=== PATIENT | female | born 1980 | race Hispanic/Latino ===

== ENCOUNTER 2022-07-15 13:27 | Emergency (ER) | payer SELFPAY ==
--- OUTSIDE RECORDS SUMMARY | 2022-07-15 13:31 | XMS REPORT | Continuity of Care Document ---
:1980 Author Organization [facility] t Address [address] [place] [address] Care Team Providers Name Role Phone KHUSHBOO MCGOWAN Attending Clinician Unavailable Emeka Attending Clinician Unavailable Vikash Attending Clinician Unavailable TERESA DURAN Attending Clinician Unavailable KEYSHA Attending Clinician Unavailable DARRYL BARRAGAN Attending Clinician Unavailable ERIC BAJWA Attending Clinician Unavailable NIK OKEEFE Attending Clinician Unavailable TAYLOR MARIE Attending Clinician Unavailable APARNA GREENWOOD Attending Clinician Unavailable HESHAM ROBERTSON Attending Clinician Unavailable MARGRET NUNEZ Attending Clinician Unavailable MIGUEL GUZAMN Attending Clinician Unavailable Germaine Horvath Attending Clinician Unavailable FREDO LARKIN Attending Clinician Unavailable JUSTIN TENORIO Attending Clinician Unavailable SUSAN ZARAGOZA Attending Clinician Unavailable LAN OLIVER Attending Clinician Unavailable OTHER, ENTER NAME IN NOTES Attending Clinician Unavailable TAYA ANDERSON Attending Clinician Unavailable Analy HERR Attending Clinician Unavailable Emeka Admitting Clinician Unavailable Vikash Admitting Clinician Unavailable KEYSHA Admitting Clinician Unavailable HESHAM ROBERTSON Admitting Clinician Unavailable FREDO LARKIN Admitting Clinician Unavailable Payers Payer Name Policy Type Policy Number Effective Date Expiration Date S ource Problems Condition Condition Condition Status Onset Resolution Last Treating Co mments Source Name Details Category Date Date Treatment Clinician Date Obesity Obesity Problem Active [facility] Abdominal Abdominal Problem Active [facility] Allergies, Adverse Reactions, Alerts Allergy Allergy Status Severity Reaction(s) Onset Inactive Treating Comm ents Source Name Type Date Date Clinician PENICILL Allergy Active [place] Social History Smoking Status Start Date Stop Date Source Current Some Day Smoker [facility] Medications Ordered Filled Start Stop Current Ordering Indication Dosage Frequency Signature Comments Components Source Medication Medication Date Date Medication? Clinician (SIG) Name Name Albuterol Albuterol No 2puff(s Q4H Albuterol [place] Sulfate HFA Sulfate HFA ) Sulfate da 90 90 HFA 90 Medical mcg/Actuati mcg/Actuati mcg/Actuat Group on aerosol on aerosol ion inhaler inhaler aerosol Inhale 2 Inhale 2 inhaler puffs every puffs every Inhale 2 4 hours by 4 hours by puffs inhalation inhalation every 4 route. route. hours by inhalation route. prednisolon prednisolon No prednisolo [facility] Zithromax Zithromax No Zithromax [place] Z-Jeff 250 Z-Jeff 250 Z-Jeff 250 da mg tablet mg tablet mg tablet Medical TAKE 2 TAKE 2 TAKE 2 Group TABLETS TABLETS TABLETS (500 MG) BY (500 MG) BY (500 MG) ORAL ROUTE ORAL ROUTE BY ORAL ONCE DAILY ONCE DAILY ROUTE ONCE FOR 1 DAY FOR 1 DAY DAILY FOR THEN 1 THEN 1 1 DAY THEN TABLET (250 TABLET (250 1 TABLET MG) BY ORAL MG) BY ORAL (250 MG) ROUTE ONCE ROUTE ONCE BY ORAL DAILY FOR 4 DAILY FOR 4 ROUTE ONCE DAYS DAYS DAILY FOR 4 DAYS Vital Signs Vital Name Observation Time Observation Value Comments Source BP Diastolic 2021-11-13 00:00:00 90 mm[Hg] [facility] Height 2021-11-13 00:00:00 60 [in_i] [facility] BMI (Body Mass 2021-11-13 00:00:00 39.1 kg/m2 [facility] BP Systolic 2021-11-13 00:00:00 136 mm[Hg] [facility] Body Weight 2021-11-13 00:00:00 3200 [oz_av] [facility] Procedures Procedure Date / Time Performed Performing Clinician [facility] e Caes[facility] Tubal L[facility] Plan of Care Planned Activity Planned Date Details Comments Source Diagnostic Test Pending 2021-11-13 rapid strep group [facility] 00:00:00 A, throat [code = Group rapid strep group A, throat] Instructions [facility] Encounters Start End Encounter Admission Attending Care Care Encounter Source Date/Time Date/Time Type Type Clinicians Facility Department ID 2022-07-14 2022-07-14 Emergency ER [facility], [facility] [id number] [place] 08:40:00 09:56:00 KHUSHBOO -[id number] [facility] 2022-06-10 2022-06-10 Outpatient Ferguson_Ro [facility] [id number] [place] 00:00:00 00:00:00 bin 0426 [facility] 2022-06-10 2022-06-10 Out[address] Ferguson_Ro [facility] [id number] [place] 00:00:00 00:00:00 bin 0526 [facility] 2022-06-05 2022-06-05 Emergency ER [facility], [facility] [id number] [place] 15:28:00 19:00:00 KHUSHBOO -[id number] [facility] 2022-01-24 2022-01-24 Outpatient [facility] MMG [id number] [place] 00:00:00 00:00:00 1210 [facility] 2021-12-20 2021-12-20 Outpatient [facility] MMG [id number] [place] 00:00:00 00:00:00 1105 [facility] 2021-11-15 2021-11-15 Outpatient [facility] MMG [id number] [place] 00:00:00 00:00:00 1001 [facility] 2021-11-14 2021-11-14 Outpatient [facility] MMG [id number] [place] 00:00:00 00:00:00 0930 [facility] 2021-11-13 2021-11-13 Outpatient [facility] MMG [id number] [place] 00:00:00 00:00:00 0929 [facility] 2021-11-13 2021-11-13 Marilyn MMG [place] - [id number] [facility] 00:00:00 00:00:00 Discovery waqas Suh FX ARTIST: [address] [facility] [place] - [address], [facility], [place] [address] , Ph. 2021-11-10 2021-11-11 Emergency ER CATANESCU, [facility] [id number] [place] 23:56:00 01:11:00 TERESA -[id number] [facility] 2021-03-12 2021-03-12 [facility] [id number] [place] 04:29:00 04:29:00 ANTWON 0126 [facility] 2018-08-23 2018-08-23 Emergency ER YUNG, [facility] [id number] [place] 15:46:00 17:49:00 DARRYL -[id number] [facility] 2016-05-22 2016-05-22 Emergency ER UGORJI, [facility] [id number] [place] 01:30:00 02:54:00 ERIC -[id number] [facility] 2015-10-02 2015-10-02 Emergency ER OWO, TOKS [facility] [id number] [place] 00:16:00 01:37:00 -[id number] [facility] 2015-04-25 2015-04-25 Emergency ER OTINWA, [facility] [id number] [place] 20:41:00 21:48:00 TAYLOR -[id number] [facility] 2014-06-28 2014-06-28 Emergency ER UGORJI, [facility] [id number] [place] 01:03:00 03:28:00 CLEISAAK -[id number] [facility] 2013-08-27 2013-08-27 Emergency ER BA, APARNA [facility] [id number] [place] 01:18:00 02:43:00 -[id number] [facility] 2011-12-08 2011-12-08 Emergency ER UGORJI, [facility] [id number] [place] 07:50:00 09:06:00 ERIC -[id number] [facility] 2011-09-09 2011-09-10 Inpatient ER MARCELO, [facility] [id number] [place] 13:45:00 09:55:00 HESHAM -[id number] [facility] 2011-03-05 2011-03-05 Emergency ER ENRIQUE, [facility] [id number] [place] 16:00:00 18:20:00 MARGRET -[id number] [facility] 2008-12-22 2008-12-22 Emergency ER UGORJI, [facility] [id number] [place] 15:49:00 18:05:00 ERIC [id number] [facility] 2008-10-14 2008-10-14 Emergency ER THOMAS, [facility] [id number] [place] 20:33:00 22:17:00 MIGUEL -[id number] [facility] 2007-09-12 2007-09-12 Emergency ER UGORJI, [facility] [id number] [place] 13:08:00 14:42:00 ERIC -[id number] [facility] 2003-08-30 2003-08-30 Outpatient EL Neret, [facility] [id number] [place] 07:20:00 07:20:00 Germaine [id number] [facility] 2003-08-23 2003-08-23 Outpatient EL Neret, [facility] [id number] [place] 09:24:00 09:24:00 Germaine [id number] [facility] 2003-06-15 2003-06-17 Inpatient EL TRAE, [facility] MSUR [id number] [place] 05:51:00 13:00:00 FREDO [id number] [facility] 2003-04-27 2003-04-27 Inpatient ER TRAE, [facility] [id number] [place] 11:55:00 19:30:00 FREDO [id number] [facility] 2003-04-26 2003-04-26 Emergency EL TRAE, [facility] [id number] [place] 17:23:00 23:59:00 FREDO -[id number] [facility] 2002-11-14 2002-11-15 Emergency ER COBY, [facility] [id number] [place] 21:57:00 02:00:00 JUSTIN -[id number] [facility] 2002-01-23 2002-01-23 Outpatient EL Neret, [facility] [id number] [place] 14:27:00 14:27:00 Germaine -[id number] [facility] 2001-09-07 2001-09-09 Inpatient UR TRAE, [facility] [id number] [place] 06:00:00 14:30:00 FREDO -[id number] [facility] 2001-08-10 2001-08-10 Outpatient ER SUSAN ZARAGOZA [facility] [id number] [place] 10:01:00 10:01:00 -[id number] [facility] 2001-07-05 2001-07-05 Outpatient SUSAN MCCOLLUM [facility] [id number] [place] 08:32:00 08:32:00 -[id number] [facility] 2001-06-15 2001-06-15 Outpatient SUSAN MCCOLLUM [facility] [id number] [place] 09:06:00 09:06:00 -[id number] [facility] 2001-03-23 2001-03-23 Outpatient SUSAN MCCOLLUM [facility] [id number] [place] 13:55:00 13:55:00 -[id number] [facility] 2001-02-23 2001-02-23 Outpatient SUSAN MCCOLLUM [facility] [id number] [place] 15:19:00 15:19:00 -[id number] [facility] 2001-02-16 2001-02-16 Outpatient SUSAN MCCOLLUM [facility] [id number] [place] 15:56:00 15:56:00 -[id number] [facility] 2000-07-01 2000-07-01 Emergency ER UGIBRAHIMA, [facility] [id number] [place] 10:43:00 12:50:00 ERIC -[id number] [facility] 2000-04-14 2000-04-14 Emergency ER YUNG, [facility] [id number] [place] 20:49:00 23:50:00 DARRYL -[id number] [facility] 2000-01-05 2000-01-05 Emergency ER BENITO, [facility] [id number] [place] 17:23:00 20:08:00 LAN -[id number] [facility] 1999-12-05 1999-12-05 Outpatient OTHER, [facility] [id number] [place] 11:01:00 11:01:00 LEANDER -[id number] [facility] 1999-11-19 1999-11-19 Emergency ER YUNG, [facility] [id number] [place] 17:16:00 21:27:00 DARRYL [id number] [facility] 1998-11-18 1998-11-18 Outpatient EL ADAMARIS [facility] [id number] [place] 15:49:00 15:49:00 TAYA Nicole -[id number] [facility] 1998-08-23 1998-08-23 Outpatient JOSE L HERR, [facility] [id number] [place] 12:05:00 12:05:00 Analy -[id number] [facility] Results This patient has no known results.
[2022-07-15] MEDS ORDERED: ONDANSETRON 4 MG (ODT) TAB ONE (13:52)
[2022-07-15] MEDS ORDERED: HYDROCODONE/APAP 5/325 MG TAB ONE (13:52)
--- NOTE | 2022-07-15 14:26 | RAD REPORT ---
EXAM DESCRIPTION: CT - CTFB CLINICAL HISTORY: right facial swelling and pain COMPARISON: No comparisons TECHNIQUE: Axial [address] images of the face were obtained without IV contrast, with sagittal a nd coronal reconstruction images. All CT scans are performed using dose optimization technique as appropriate and may include automated exposure control or mA/KV adjustment according to patient size. FINDINGS: No acute facial bone fracture is seen. Expansile periapical collection at the root of the right maxillary canine, measuring 8 x 7 millimeter (axial image 32/83), with adjacent osseous lucency extending medially along the maxillary alveolus, and anterior roots of the left mandibular second to last molar. Other dental and periodontal disease, including small periapical collections along the roots on lungs of the right maxillary posterior-mos t molars. Overlying soft tissues along the right premaxillary and premolar region. No evidence of a sizable sub periosteal abscess. The mandible is intact. The globes and orbital contents are grossly unremarkable.The paranasal sinuses and mastoids are clear . IMPRESSION: Periapical expansile small abscess at the root of the right maxillary canine, with adjac ent osseous lucency suggesting limited osteomyelitis. Overlying soft tissue swelling, without evidenc e of a sizable subperiosteal abscess. The findings were communicated to Edmundo Huitron on 07/15/2022 at 14:21 hours.
[2022-07-15 15:26] LABS: Absolute Lymphocytes (CBC) 0.9 K/uL (0.7-4.9); Hematocrit 43.5 % (36.0-45.0); Lymphocytes % 16.4 % (15.3-44.8); MCV 88.3 fL (80-100); MPV 9.5 fL (7.6-11.3); RBC Red Blood Cell Count 4.92 M/uL (3.86-4.86)
[2022-07-15 15:31] LABS: Potassium 3.6 mEq/L (3.5-5.1)
--- NOTE | 2022-07-15 15:37 | ER ---
Nurse's Notes [facility] Name: Ninoska Wright Age: 41 yrs Sex: Female : 1980 Arrival Date: 07/15/2022 Time: 13:27 Bed 24 Private MD: Diagnosis: Dental abscess;Facial cellulitis Presentation: 07/15 13:34 Chief complaint: Patient states: "For about 1 month now I have a pus pocket under my mb9 right eye from a dental infection. Around 450 yesterday, I woke up with a swollen face and pain. I went to [facility] ER and they gave pain medications and Clindamycin. Today I went to the Dentist and they told me I had a dental emergency and will need surgery. Dr. Christiansen didn't have time today and they said go to the ER bc I need something right away.". Coronavirus screen: Vaccine status: Patient reports being unvaccinated. Ebola Screen: No symptoms or risks identified at this time. Initial Sepsis Screen: Does the patient meet any 2 criteria? No. Patient's initial sepsis screen is negative. Does the patient have a suspected source of infection? No. Patient's initial sepsis screen is negative. Risk Assessment: Do you want to hurt yourself or someone else? Patient reports no desire to harm self or others. Onset of symptoms was July 15, 2022. 13:34 Method Of Arrival: Ambulatory mb9 13:34 Acuity: JAN 3 mb9 Triage Assessment: 13:38 General: Appears uncomfortable, ill, Behavior is cooperative. Pain: Complains of pain mb9 in face Pain does not radiate. Pain currently is 7 out of 10 on a pain scale. Quality of pain is described as aching, throbbing, Pain began 1 month Is continuous. EENT: Oral mucosa is dry. Poor dentition noted. Cardiovascular: Patient's skin is warm and dry. Respiratory: Airway is patent Respiratory effort is even, unlabored, Respiratory pattern is regular, symmetrical. Derm: Skin is pink, warm \\T\\ dry. Musculoskeletal: Swelling present in face. 13:40 Neuro: Level of Consciousness is awake, alert, obeys commands, Oriented to person, mb9 place, time, situation, Appropriate for age Reports headache. Historical: - Allergies: 13:38 PENICILLINS; mb9 - Home Meds: 13:38 None [Active]; mb9 - PMHx: 13:38 None; mb9 - PSHx: 13:38 Cholecystectomy; section; mb9 - Immunization history:: Adult Immunizations not immunized. - Family history:: not pertinent. - Hospitalizations: : No recent hospitalization is reported. Assessment: 13:40 Reassessment: See triage assessment. mb9 Vital Signs: 13:34 BP 132 / 95; Pulse 84; Resp 18; Temp 99.6; Pulse Ox 98% ; Weight 81.65 kg; Height 4 ft. mb9 11 in. ; Pain 4/10; 13:34 Body Mass Index 36.36 (81.65 kg, 149.86 cm) mb9 13:34 Pain Scale: Adult mb9 ED Course: 13:33 Patient arrived in ED. kj1 13:36 Edmundo Huitron MD is Attending Physician. rn 13:37 Triage completed. mb9 13:37 Arm band placed on. mb9 13:55 CT Facial Bones W/O Con In Process Unspecified. EDMS 14:28 Mariluz Dotson RN is Primary Nurse. iw 14:36 CBC with Diff Sent. iw 14:36 Basic Metabolic Panel Sent. iw 14:38 Inserted saline lock: 20 gauge in right antecubital area, using aseptic technique. iw 15:35 Titus Valdez DDS is Referral Physician. rn Administered Medications: 13:46 Drug: Ondansetron PO 4 mg Route: PO; mb9 19:22 Follow up: Response: No adverse reaction iw 13:46 Drug: HYDROcodone-acetaminophen PO 5 mg-325 mg 1 tabs Route: PO; mb9 14:40 Follow up: Response: No adverse reaction; Pain is decreased iw 15:52 Drug: Clindamycin IVPB 600 mg Route: IVPB; Infused Over: 30 mins; Site: right mb9 antecubital; 16:30 Follow up: IV Status: Completed infusion iw 15:52 Drug: Ibuprofen PO 800 mg Route: PO; mb9 16:15 Follow up: Response: No adverse reaction; Pain is decreased iw Outcome: 15:36 Discharge ordered by . rn 16:38 Patient left the ED. iw Signatures: Dispatcher [employer] EDMS Mariluz Dotson RN RN iw Nieto, Roman, MD MD rn Jackson, Kandis kj1 Jonelle Kauffman RN RN mb9 Corrections: (The following items were deleted from the chart) 13:41 13:34 Acuity: JAN 4 mb9 mb9
--- NOTE | 2022-07-15 15:37 | EDPHYS ---
Physician Documentation [facility] Name: Ninoska Wright Age: 41 yrs Sex: Female : 1980 Arrival Date: 07/15/2022 Time: 13:27 Bed 24 Private MD: ED Physician Edmundo Huitron HPI: 07/15 13:46 This 41 yrs old Female presents to ER via Ambulatory with complaints of Toothache. rn 13:46 The patient presents with pain, swelling. The problem is located in the right upper rn teeth, right face. Onset: The symptoms/episode began/occurred 1 week(s) ago. Duration: The symptoms are continuous. Modifying factors: The symptoms are alleviated by nothing, the symptoms are aggravated by touching face. Associated signs and symptoms: Pertinent positives: nausea, pain, redness in area, swelling, Pertinent negatives: fever, vomiting. Severity of symptoms: At their worst the symptoms were moderate, in the emergency department the symptoms are unchanged. The patient has experienced a previous episode. The patient has been recently seen by a physician:. Sent by dentist for further eval, placed on clindamycin yesterday. . Historical: - Allergies: 13:38 PENICILLINS; mb9 - Home Meds: 13:38 None [Active]; mb9 - PMHx: 13:38 None; mb9 - PSHx: 13:38 Cholecystectomy; section; mb9 - Immunization history:: Adult Immunizations not immunized. - Family history:: not pertinent. - Hospitalizations: : No recent hospitalization is reported. ROS: 13:46 Constitutional: Negative for fever, chills, and weight loss, Eyes: + right periorbital rn swelling ENT: + dental pain facial swelling Neck: Negative for injury, pain, and swelling, MS/Extremity: Negative for injury and deformity, Skin: Negative for injury Exam: 13:46 Constitutional: This is a well developed, well nourished patient who is awake, alert rn Eyes: + right periorbital swelling and erythema, no erythema or swelling of eyes proper ENT: Poor dentition, + inflamed gingiva, no obvious abscess, no buccal space abscess or fluctuance. Neck: Trachea midline, no thyromegaly or masses palpated. Supple, full range of motion without nuchal rigidity, or vertebral point tenderness. Cardiovascular: Regular rate and rhythm. No pulse deficits. Respiratory: No increased work of breathing, no retractions or nasal flaring. Abdomen/GI: Soft, non-tender Skin: Warm, dry MS/ Extremity: Pulses equal, no cyanosis. Neuro: Awake and alert, GCS 15 Vital Signs: 13:34 BP 132 / 95; Pulse 84; Resp 18; Temp 99.6; Pulse Ox 98% ; Weight 81.65 kg; Height 4 ft. mb9 11 in. ; Pain 4/10; 13:34 Body Mass Index 36.36 (81.65 kg, 149.86 cm) mb9 13:34 Pain Scale: Adult mb9 MDM: 13:36 Patient medically screened. rn 15:30 Differential diagnosis: dental caries, dental abscess. rn 15:32 Data reviewed: vital signs, nurses notes, lab test result(s), radiologic studies, CT rn scan. 15:32 Management of patient was discussed with the following: Dehydrogenation Operator Head: Dr. Valdez, case rn discussed, states does not require hospitalization and emergent surgery, can get her into clinic in next 24 hours for tooth extraction. . Counseling: I had a detailed discussion with the patient and/or guardian regarding: the historical points, exam findings, and any diagnostic results supporting the discharge/admit diagnosis, lab results, radiology results, the need for outpatient follow up, to return to the emergency department if symptoms worsen or persist or if there are any questions or concerns that arise at home. Response to treatment: the patient's symptoms have markedly improved after treatment, and as a result, I will discharge patient. ED course: Dr. Valdez notified of patient, is expecting call from patient and will get her in immediately. Will expand abx coverage, given IV clindamycin here. Pt states not trying to save the tooth, prefers extraction instead of root canal. Return precautions given and understood. . 15:34 Special discussion: I discussed with the patient/guardian in detail that at this point rn there is no indication for admission to the hospital. It is understood, however, that if the symptoms persist or worsen the patient needs to return immediately for re-evaluation. Based on the history and exam findings, there is no indication for further emergent testing or inpatient evaluation. I discussed with the patient/guardian the need to see a dentist for further evaluation of the symptoms. 07/15 13:44 Order name: CBC with Diff; Complete Time: 15:34 rn 07/15 13:44 Order name: Basic Metabolic Panel; Complete Time: 15:32 rn 07/15 13:44 Order name: CT Facial Bones W/O Con; Complete Time: 14:35 rn 07/15 13:44 Order name: IV Start; Complete Time: 14:36 rn Administered Medications: 13:46 Drug: Ondansetron PO 4 mg Route: PO; mb9 19:22 Follow up: Response: No adverse reaction iw 13:46 Drug: HYDROcodone-acetaminophen PO 5 mg-325 mg 1 tabs Route: PO; mb9 14:40 Follow up: Response: No adverse reaction; Pain is decreased iw 15:52 Drug: Clindamycin IVPB 600 mg Route: IVPB; Infused Over: 30 mins; Site: right mb9 antecubital; 16:30 Follow up: IV Status: Completed infusion iw 15:52 Drug: Ibuprofen PO 800 mg Route: PO; mb9 16:15 Follow up: Response: No adverse reaction; Pain is decreased iw Disposition Summary: 07/15/22 15:36 Discharge Ordered Location: Home rn Problem: new rn Symptoms: have improved rn Condition: Stable rn Diagnosis - Dental abscess rn - Facial cellulitis rn Followup: rn - With: Titus Valdez DDS - When: Tomorrow - Reason: Recheck today's complaints, Re-evaluation by your physician Discharge Instructions: - Discharge Summary Sheet rn - Cellulitis, Adult rn - Dental Abscess rn Forms: - Family Work Release iw - Medication Reconciliation Form rn - Thank You Letter rn - Antibiotic internet marketing executive - Prescription Opioid Use rn Prescriptions: - ondansetron 4 mg Oral Tablet,disintegrating - take 1 tablet by ORAL route every 8 hours As needed; 12 tablet; Refills: 0, rn Product Selection Permitted - Tramadol 50 mg Oral Tablet - take 1 tablet by ORAL route every 8 hours as needed; 12 tablet; Refills: 0, rn Product Selection Permitted - Bactrim DS 800-160 mg Oral Tablet - take 1 tablet by ORAL route every 12 hours for 10 days; 20 tablet; Refills: 0, rn Product Selection Permitted Signatures: Dispatcher [employer] Edmundo Hong MD MD rn Breneman, Mary Beth, RN RN Mariluz Ibarra RN iw
[2022-07-15] MEDS ORDERED: IBUPROFEN 400 MG TAB ONE (15:53)
[2022-07-15] MEDS ORDERED: CLINDAMYCIN 600MG/D5W 50 ML IV ONE (15:53)
[2022-07-15 16:51] VITALS: BP 132/95; TEMP 99.6; O2SAT 98
== END 2022-07-15 16:38 | disposition home or self-care (01) ==
LOC: ER 13:27
DX: K04.7 Periapical abscess without sinus (principal); L03.211 Cellulitis of face
CPT/HCPCS: 36415; 70486; 76377; 80048; 85025; 96365; 99284; Q0162